=== PATIENT | female | born 1950 | race Caucasian/White ===

== ENCOUNTER 2021-06-19 14:23 | Outpatient (CLI) | payer MEDICARE, OTHER, SELFPAY ==
--- NOTE | ~2021-06-19 | MR_ITS ---
EXAMINATION: MR knee LT wo con DATE: 06/19/2021 15:37 INDICATION: Left knee pain TECHNIQUE: Magnetic resonance imaging (MRI) of the left knee was performed without intravenous contra st. Sequences included coronal PD-weighted FSE, coronal PD-weighted FS FSE, sagittal T2-weighted FSE , sagittal PD-weighted FS FSE and axial PD weighted fat saturated FSE. COMPARISON: None. FINDINGS: Medial compartment: Medial extrusion of the medial meniscal body. Medial meniscal tear with longitudinal horizontal compo nent at the meniscal body and complex tears near the roots of the anterior and posterior horns, the f ormer with amorphous macerated appearance. Extensive full/near full-thickness cartilage loss with sca ttered mild irregularity to the articular cortex and mild subarticular edema along all but the milieu coordinator ior most weightbearing medial femoral condyle. Similar foci seen full-thickness cartilage loss with m ild subarticular edema along the anterior third of the medial tibial plateau. Moderate size marginal osteophytes are present. Lateral compartment: Lateral meniscus is normal. Small amount of deep chondral fissuring at the anterior and central weigh tbearing lateral femoral condyle. Full/near full-thickness chondral ulceration with mild subarticular edema at the anteriormost weightbearing medial femoral condyle at the junction with the inferior asp ect of the lateral trochlea. Cartilage along the lateral tibial plateau is normal. Tiny marginal oste ophytes are present. Patellofemoral compartment: Chondral ulceration and deep fissuring at the patellar apical ridge and medial facet without degenera tive subchondral changes. Shallow chondral fissuring along the inferior aspect of the lateral facet. Deep chondral ulceration with small central subchondral osteophytes along the central aspect of the m edial half of the trochlea and trochlear groove. Deep chondral fissuring with tiny focus of subarticu lar edema at the lateral trochlea. Small marginal osteophytes are present. Ligaments and tendons: Anterior and posterior cruciate ligaments are normal. The medial collateral ligament and fibular luz marina ateral ligament complex are normal. The extensor mechanism is normal. The visualized medial and later al hamstring tendons as well as the iliotibial band are normal. Fluid: Minimal streaky joint effusion at the suprapatellar pouch where there is also a partial suprapatellar plical band. No loose osteochondral bodies identified. Grossman's cyst measuring 5.5 similar craniocaud ally and 1.7 x 1.4 cm in maximal transaxial dimensions. Osseous/other: Bone alignment is normal. No fracture or pathologic marrow replacing process. IMPRESSION: 1. Complex medial meniscal tear. 2. 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 3. Minimal left knee joint effusion and small to moderate-sized Grossman's cyst. Reviewed, dictated and finalized at location A. 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
== END 2021-06-19 14:24 | disposition home or self-care (01) ==
LOC: ANHIMG 14:29
PROVIDERS: PCP Internal Medicine; Visit Provider Nurse Practitioner Family
DX: M17.12 Unilateral primary osteoarthritis, left knee (principal); S83.232A Complex tear of medial meniscus, current injury, left knee, initial encounter; X58.XXXA Exposure to other specified factors, initial encounter
CPT/HCPCS: 73721

== ENCOUNTER 2021-07-30 11:44 | Outpatient (CLI) | payer MEDICARE, OTHER, SELFPAY ==
--- NOTE | ~2021-07-30 | XR_ITS ---
EXAMINATION: XR shoulder LT min 2V INDICATION: Left shoulder pain TECHNIQUE: Four views of the left shoulder are submitted. COMPARISON: None FINDINGS: Normal alignment. No fracture. There is mild osteoarthritis of the glenohumeral and acromio clavicular joints. Soft tissues are unremarkable. IMPRESSION: 1. Mild osteoarthritis without acute osseous abnormality identified. Reviewed, dictated and finalized at location A. 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
[2021-07-30 12:30] LABS: Albumin Level 4.2 g/dL (3.5-5.1)
== END 2021-07-30 11:45 | disposition home or self-care (01) ==
PROVIDERS: PCP Internal Medicine; Referring Provider Orthopaedic Surgery; Visit Provider Internal Medicine
DX: M19.012 Primary osteoarthritis, left shoulder (principal); R77.0 Abnormality of albumin
CPT/HCPCS: 36415; 73030; 82040

== ENCOUNTER 2021-09-01 11:00 | Outpatient (RCR) | payer MEDICARE, OTHER, SELFPAY ==
[2021-08-05 14:02] VITALS: BP_SYST 84
--- NOTE | 2021-08-05 15:20 | PTOPEVAL ---
PHYSICAL THERAPY INITIAL EVALUATION. Thank you for referring Tina Murphy to [facility].? The patient is scheduled to be seen for therapy?2 x/week for 4 weeks. Please review, sign, date and return this plan of care BRAYAN. I agree with and certify that the following plan of care is medically necessary. Referring Physician Date Attending Provider: Jayce Saenz DO *PT Outpatient Evaluation Start: 08/05/21 Evaluation Information Diagnosis L shoulder pain Onset 07/04/2021 Subjective Information Pt states she was getting out Query Text:As Reported By Patient/ of a tall truck when she lost Family her balance and sort of slid out of the truck. To avoid falling on her knees she held on to the door frame and states she jammed her shoulder and it went higher than usual . She thought the pain would have gone away in a few days but it is still lingering. She reports a few weeks ago she rolled over in bed a felt a pop followed by a sharp pain, then a fluttering feeling like a butterfly . Pain Assessment Pain Description Aching,Burning,Shooting, Tightness,With Movement Pain Radiation Left Arm,Left Elbow Pain Frequency Acute Lowest Pain Intensity 7 Greatest Pain Intensity 8 Pain Aggravating Factors Supine Other Pain Aggravating Factors Reaching with her arm Other Alleviating Interventions Pt sleeps in a recliner d/t pain. Ice, heat, and massage do not help Upper Extremity Range of Motion Left Reason Not Measured WNL/Right,Pain Shoulder Flexion - Active 80 Shoulder Flexion - Passive 110 Shoulder Abduction - Active 48 Shoulder Abduction - Passive 84 Shoulder Medial Rotation - Active L5 Shoulder Lateral Rotation - Passive 20 Shoulder Lateral Rotation - Active T1 Scapular/Shoulder Range of Motion Pain Limitations Scapular/Shoulder Range of Motion R shoulder medial rotation T10 Comments , lateral rotation T5 Upper Extremity Muscle Strength Testing Left Shoulder Flexion Strength 3 Fair Shoulder Abduction Strength 3- Fair - Shoulder Medial Rotation Strength 4- Good - Shoulder Lateral Rotation Strength 4- Good - Palpation Assessment Palpation Tenderness at lateral aspect of h
[2021-09-01 10:58] VITALS: BP_SYST 122
--- NOTE | 2021-09-01 11:32 | PTOPEVAL ---
PHYSICAL THERAPY PROGRESS REPORT AND DISCHARGE SUMMARY. Thank you for referring Tina Murphy to [facility].? The patient is to be discharged from skilled physical therapy services at this time. Please review, sign, date and return this plan of care BRAYAN. I agree with and certify that the following plan of care is medically necessary. Referring Physician Date Attending Provider: Jayce Saenz DO Evaluation Information Diagnosis L shoulder pain Onset 07/04/2021 Subjective Information Pt states her shoulder is Query Text:As Reported By Patient/ doing much better. She states Family she no longer has pain and rest, she states when she puts her hair up or reaches overhead she gets an achy pain but this subsided quickly. Pt states she has improved 100% from where she started. Pain Assessment Left Shoulder(s) Reported Pain Level 0 Greatest Pain Intensity 1 Upper Extremity Range of Motion Left Shoulder Flexion - Active 128 Shoulder Flexion - Passive 150 Shoulder Abduction - Active 115 Shoulder Abduction - Passive 122 Shoulder Medial Rotation - Active T12 Shoulder Lateral Rotation - Passive 40 Shoulder Lateral Rotation - Active T4 Scapular/Shoulder Range of Motion R shoulder medial rotation T10 Comments , lateral rotation T5 Upper Extremity Muscle Strength Testing Left Shoulder Flexion Strength 4 Good Shoulder Abduction Strength 4- Good - Shoulder Medial Rotation Strength 4 Good Shoulder Lateral Rotation Strength 4 Good PT Clinical Summary Tina presents to therapy today for her progress report following 8 therapy visits to treat her L shoulder pain. Today she demonstrates decreased pain, increased ROM, increased strength, and increased UE function. Her L UE still has minimal ROM and strength deficits when compared to the uninvolved side but she has progressed to unlimited shoulder function. Pt was educated that her strength and ROM will continue to improve with return to normal functional mobility. She is to be discharged from skilled physical therapy services
== END 2021-09-01 15:43 | disposition home or self-care (01) ==
LOC: ANHPT 11:00
PROVIDERS: PCP Internal Medicine; Referring Provider Internal Medicine; Visit Provider Internal Medicine
DX: M25.512 Pain in left shoulder (principal)
CPT/HCPCS: 97110; 97140; 97161

== ENCOUNTER 2021-09-04 11:37 | Outpatient (CLI) | payer MEDICARE, OTHER, SELFPAY ==
[2021-09-04 13:05] LABS: Basophils Absolute Auto 0.1 K/mm3 (0.0-0.1); Eosinophils Absolute Auto 0.2 K/mm3 (0-0.3); Eosinophils Percent Auto 2.3 % (0-4.4); Hematocrit 42.3 % (37.0-47.0); Hemoglobin 13.6 g/dL (12.0-15.0); Immature Granulocyte Absolute 0.02 K/mm3 (0.00-0.031); Immature Granulocyte Percent A 0.3 % (0-0.5); Lymphocytes Absolute Auto 2.27 K/mm3 (0.9-3.2); Lymphocytes Percent Auto 33.3 % (18.3-44.2); Mean Corpuscular HGB Conc 32.2 g/dl (32-36); Mean Corpuscular Volume 99.5 fl (80-100); Mean Platelet Volume 10.6 fl (7.4-10.4); Monocytes Absolute Auto 0.7 K/mm3 (0.1-0.6); Monocytes Percent Auto 10.4 % (2.6-8.5); Neutrophils Absolute Auto 3.6 K/mm3 (1.3-6.7); Neutrophils Percent Auto 52.7 % (45.5-73.1); Platelet Count Result 290 k/mm3 (150-375); Red Blood Count 4.25 M/mm3 (4.2-5.4); Red Cell Distribution Width 13.1 % (11.5-14.5); White Blood Count 6.8 K/mm3 (4.5-10.0)
[2021-09-04 13:08] LABS: Anion Gap 5 mmol/L (8-16); Blood Urea Nitrogen 19 mg/dL (7-17); Calcium 9.2 mg/dL (8.4-10.2); Carbon Dioxide 32 mmol/L (22-30); Chloride 100 mmol/L (98-107); Estimated Glomerular Filt Rate > 60; Glucose 93 mg/dL (65-110); Potassium 4.1 mmol/L (3.4-5.0); Sodium 137 mmol/L (137-145)
[2021-09-04 13:10] LABS: Appearance Urine Clear (Clear); Bilirubin Urine Negative (Negative); Color Urine Yellow (Yellow); Glucose Urine UA Negative (Negative); Ketones Urine Negative (Negative); Leukocyte Esterase Ur Negative LEU/UL (Negative); Nitrate Urine Negative (Negative); Protein Urine Negative (Negative); Urobilinogen Urine 0.2 mg/dL (<2.0)
[2021-09-04 13:12] LABS: Hemoglobin A1C 5.3 % (<5.7)
[2021-09-04 13:13] LABS: INR 0.9; Prothrombin Time 11.9 Seconds (11.1-14.7)
[2021-09-04 13:15] LABS: Bacteria Urine Trace /hpf; Partial Thromboplastin Time 28.1 SECONDS (22.3-36.8); RBC Urine 0-2 /hpf (0-2); WBC Urine 0-3 /hpf
[2021-09-04 13:19] LABS: Add Urine Microscopic? YES; Blood Urine Trace-Intact (Negative)
[2021-09-04 13:53] LABS: Urine Cotinine NEGATIVE
== END 2021-09-04 11:38 | disposition home or self-care (01) ==
LOC: ANHSURGERY 11:42
PROVIDERS: PCP Internal Medicine; Visit Provider Orthopaedic Surgery
DX: Z01.818 Encounter for other preprocedural examination (principal); M17.12 Unilateral primary osteoarthritis, left knee; Z51.81 Encounter for therapeutic drug level monitoring; Z79.899 Other long term (current) drug therapy
CPT/HCPCS: 80048; 80307; 81001; 83036; 85025; 85610; 85730; 86850; 86900; 86901; 87081

== ENCOUNTER 2021-09-16 09:36 | Outpatient (CLI) | payer MEDICARE, OTHER, SELFPAY ==
--- NOTE | 2021-09-16 10:00 | ECG_ITS ---
Measurements Intervals [place] Rate: 66 P: 39 CT: 170 QRS: -28 QRSD: 98 T: 8 QT: 389 QTc: 409 Interpretive Statements SINUS RHYTHM BORDERLINE LEFT AXIS DEVIATION INCOMPLETE RIGHT BUNDLE BRANCH BLOCK Electronically Signed On 09-16-2021 12:09:26 CDT by Vick Olmstead M.D.
== END 2021-09-16 09:37 | disposition home or self-care (01) ==
LOC: ANHSURGERY 09:41
PROVIDERS: PCP Internal Medicine; Visit Provider Orthopaedic Surgery
DX: M17.12 Unilateral primary osteoarthritis, left knee (principal); Z01.818 Encounter for other preprocedural examination; I45.10 Unspecified right bundle-branch block
CPT/HCPCS: 93005

== ENCOUNTER 2021-09-17 00:08 | Day surgery (SDC) | payer MEDICARE, OTHER, SELFPAY ==
[2021-09-04 11:48] VITALS: BMI 33.6
--- NOTE | 2021-09-04 12:18 | PC.NURSE ---
Report to the Outpatient Waiting Room, entrance under the green pavilion located off [facility], at time _1130 on date __09/17/21 . OR Time: __1:30 PM____. - You and your visitor will be asked a series of questions to screen for COVID 19 for your protection. - A mask is required within the hospital. Preoperative COVID Testing Requirements: No COVID Test needed if: (proof is required; if not received patient will have Rapid Test prior to entry) - Patient has received COVID Vaccine at least 14 days prior to procedure date or - Patient has positive COVID test result within last 90 days of surgery date. COVID Test needed if above criteria is not met If not COVID vaccinated a COVID test must be conducted within 72 hours of surgery and patient is asked to isolate self from time of testing until procedure. You will go to the [facility] for your COVID testing. The [facility] [facility] is located at the corner of [address] [facility]. You will only be called if COVID results are positive and your surgeon may reschedule your elective surgery date. Patients may have clear liquids (water, carbonated beverages, clear teas, apple juice) until 3 hours prior to surgery with a maximum of 20 ounces. - No food from midnight until time of surgery - Infants may have breast milk until 4 hours before surgery, formula 6 hours prior to surgery. - Children will be allowed to drink immediately following surgery. If applicable, please bring a bottle or sippy cup to assist with drinking. Juice, water, soda, and popsicles are readily available. For infants on formula, please bring formula the day of surgery. Pacifiers are allowed. Take the following medications with a SIP of water the morning of surgery: ____NONE Medications to discontinue per physician ALL VITAMINS AND SUPPLEMENTS 3 DAYS PRE OP ,IBUPROFEN PER DR LY Date to take last dose____09/13/21 Please no make-up, nail czech, hairspray, perfume, deodorant, or body powder the day of surgery. No jewelry (including any body piercings) or valuables the day of surgery, leave them at home. Please take a shower or bath the night before, or the morning of, surgery with an antibacterial soap. Wear comfortable, loose fitting clothing. Children are encouraged to wear pajamas. - Jewelry must be removed prior to entering the operating room. Rings and piercings that are not removed may be cut off. - The hospital will not accept responsibility for valuables. - Please leave all valuables, including medications, at home the day of surgery. If you are going home after surgery, a licensed pile driver must drive you home. - NO public transportation without another adult. - We recommend that an adult stay with you for 24 hours following discharge. - We also recommend that you do not drive, make important decision, drink alcoholic beverages, or take any drugs that were not prescribed by your health care provider for at least 24 hours after your discharge time. For Pediatric surgeries, we recommend two adults accompany the child home (only one inside the building at this time). One visitor will be allowed to accompany the patient into the hospital. Patients visitor will be instructed to remain with patient at all times or leave the building. We will allow the visitor to come back to the postoperative area when patient is ready. Follow any additional instructions given to you from your surgeon. VERBAL AND WRITTEN instructions given to __PATIENT and asked if any additional questions and then verbalized understanding. Patient advised to call surgeon office or pre surgery nurse liaison [phone] if any additional questions.
[2021-09-04 12:35] VITALS: BP 135/66; PULSE 69; RESP 18; TEMP 37.1; O2SAT 98
[2021-09-17] VITALS (18 sets, daily range): BP systolic 139–180; BP diastolic 57–96; PULSE 69–97; RESP 10–20; TEMP 36.1–37; O2SAT 88–100
--- NOTE | ~2021-09-17 | XR_ITS ---
EXAMINATION: XR knee LT 2V EXAM DATE: 09/17/2021 15:16 INDICATION: Total left knee arthroplasty. TECHNIQUE: Portable frontal, crosstable lateral projections left knee obtained immediately following arthroplasty performed by orthopedic surgeon Gary Wakefield MD. FINDINGS: Patient is status post total knee arthroplasty. The orthopedic hardware is in expected po sition. There are corinne overlying the anterior aspect of the knee. There is small amount of subcu taneous gas, gas within the knee joint space. Overlying soft tissue swelling. Correlate with proced ure note. IMPRESSION: Status post total left knee arthroplasty. Reviewed, dictated and finalized at location B.
--- NOTE | 2021-09-17 07:07 | WPDHPUPDATE1 ---
History and Physical Update Update Date/Time: 09/17/21 07:07 History and Physical has been reviewed, including an updated exam of the patient. There are NO changes in the patient's condition. Risks, benefits, and alternatives have been discussed and questions answered. Patient agrees to proceed with procedure.
--- NOTE | 2021-09-17 09:13 | WPDANESEPPF ---
Anes - Initial Pre Proc Eval Procedure: Operation Date: 09/17/21 13:30 Proposed Procedures p Left Total Knee Arthroplasty - Gary Wakefield MD Date/Time: 09/17/21 09:13 Surgeon: Gary Wakefield MD Pre Op Diagnosis: left knee DJD Patient Data Age: 71 Gender: F Height: 1.57 m Weight: 83.4 kg Last Vital Signs Temp 37.1 C 09/04/21 12:35 Pulse 69 09/04/21 12:35 Resp 18 09/04/21 12:35 BP 135/66 09/04/21 12:35 Pulse Ox 98 09/04/21 12:35 Allergies Allergy/AdvReac Type Severity Reaction Status Date / Time methylprednisolone Allergy Severe Nausea and Verified 09/17/21 11:24 [From Depo-Medrol] Vomiting,DIZZY Tetanus Vaccines and Toxoid Allergy Severe ARM Verified 09/17/21 11:24 Swelling clindamycin Allergy Intermediate Unknown Verified 09/17/21 11:24 etodolac Allergy Intermediate SOB,SWELLIN Verified 09/17/21 11:24 G gabapentin Allergy Intermediate tongue Verified 09/17/21 11:24 swelling oxaprozin Allergy Intermediate Unknown Verified 09/17/21 11:24 pertussis vaccine,adsorbed Allergy Intermediate tongue Verified 09/17/21 11:24 swelling Sulfa (Sulfonamide Allergy Intermediate Headache,NA Verified 09/17/21 11:24 Antibiotics) USEA cefuroxime AdvReac Dizziness,N Verified 09/17/21 11:24 AUSEA hyaluronic acid AdvReac Nausea,SWELLING Verified 09/17/21 11:24 [From Euflexxa] AND DIZZINESS iohexol AdvReac Vomiting,SO Verified 09/17/21 11:24 [From contrast - CT, X-RAY] B metronidazole [From Flagyl] AdvReac Swelling,DIZZINESS Verified 09/17/21 11:24 AND NAUSEA tramadol AdvReac SOB AND Verified 09/17/21 11:24 SWELLING Home Medications Medication Instructions Recorded Confirmed Type ibuprofen 400 mg PO Q6H PRN 09/04/21 09/17/21 History multivitamin with minerals 1 tablet PO DAILY 09/04/21 09/17/21 History [Hair,Skin and Nails] [id number] carb-vit K 1 tablet PO DAILY 09/04/21 09/17/21 History [Women's Multivitamin] Patient hx anesthesia problems: none Family hx anesthesia problems: none Results Review: All pre-operative results and documents have been reviewed as part of the pre-operative evaluation. [facility] Past Medical History Medical History (Updated 09/11/21 @ 14:57 by Britney Hyatt) Arthritis Hair changes History of colon polyps History of left heart catheterization Left knee DJD Swollen feet Swollen joint Vertigo Wears glasses Surgical History Surgical History History of arthroscopy of left knee History of bariatric surgery History of cholecystectomy History of fusion of cervical spine History of hernia repair History of hysterectomy Hx of reduction mammoplasty Family History Family History Father Cancer Heart problem Mother Cancer Breast cancer Sibling Cancer Other Arthritis Heart disease Social History Social History Additional smoking assessment comments: DENIES ANY FORM OF TOBACCO USE Alcohol intake: never Substance use: never Substance use type: does not use Living arrangements: with family 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 Gender identity (if verbalized by the patient): Female Sexual Orientation (if Verbalized by the Patient): Straight or Heterosexual Spiritual care concerns: No Anes - Eval Final PreProcedure Day of Procedure 09/17/21 09:13 Patient weight: obese Heart: regular rate and rhythm Lungs: clear to auscultation and normal air movement Airway: Mallampati scale class II Neurological: alert and oriented Last oral intake: >/= 8 hours ASA classification: II Emergent: no Anesthetic plan: proceed Anesthesia type and monitoring: general LMA and standard monitoring Results Review: All pre-operative results and documents have been reviewed as part of the pre-operative emma
--- NOTE | 2021-09-17 09:14 | WPDANESPNB ---
Anes - Peripheral Nerve Block Date/Time: 09/17/21 09:14 I have discussed with the patient/family/POA the placement of a peripheral nerve block for post-operative pain management, including associated risks, benefits, complications, and side effects. Alternative methods of post-operative analgesia were detailed. Questions were solicited and answers provided to the satisfaction of the patient/family/POA. Time-Out: A pre-procedural Time-Out was completed immediately before starting the procedure and confirmed: Patient Identification, Site, Procedure, Patient Position and the Availability of Requisite Equipment. Clinical Indications: Acute post-operative pain management requested by the operative surgeon. Nerve Block Insertion Note Anes-nerve block: adductor canal left Patient position: supine Skin prep: chlorhexidine Needle: 22 gauge, stimulating, insulated echogenic needle. Needle length: 80 mm Technique: ultrasound Injectate: bupivacaine 0.5% with epi 5 mcg/ml (30cc - no epi) Observations: tolerated well Complications: none Procedure start time:: 1226 Procedure end time:: 1230
[2021-09-17] MEDS: ACETAMINOPHEN 500 MG TABLET 1000 MG PO ×2 (12:17→19:54)
[2021-09-17] MEDS: LACTATED RINGERS 1,000 ML 30 ML IV CONT ×2 (12:17→15:03)
[2021-09-17] MEDS: TRANEXAMIC ACID 1,000MG/ISO100 1,000 MG/100 ML BAG 200 MG IVPB (12:20)
[2021-09-17] MEDS: ceFAZolin 2 GM/D5W 50 ML 2 GM/50 ML BAG IVPB ×2 (12:45→19:54)
[2021-09-17] MEDS: TRANEXAMIC ACID 1,000 MG/10 ML AMPUL 1000 MG IV PUSH (14:19)
--- NOTE | 2021-09-17 15:17 | W.PM.PROC2 ---
Procedure Note - Detailed Date of Procedure 09/17/21 Pre-op Diagnosis left knee DJD Post-op Diagnosis Same Procedure Performed L TKA Surgeon Gary Wakefield MD Anesthesia General Description of Procedure THE LEFT KNEE WAS PREPPED AND DRAPED IN THE STERILE FASHION. THERE WAS A 5 DEGREE FLEXION CONTRACTURE. A MIDLINE SKIN INCISION WAS MADE. A MEDIAL PARAPATELLAR ARTHROTOMY WAS MADE. THE PATELLA WAS EVERTED. THERE WAS TRICOMPARTMENT DJD. THERE WAS MINIMAL PATELLA DJD. AN INTRAMEDULLARY CHACHA WAS PLACED IN THE FEMUR. A DISTAL FEMORAL CUT WAS MADE IN 5 DEGREES OF VALGUS REMOVING APPROXIMATELY 9 MM OF BONE FROM THE DISTAL FEMUR. THE FEMUR WAS SIZED TO 62.5. A 62.5 FEMORAL CUTTING BLOCK WAS PLACED IN 3 DEGREES OF EXTERNAL ROTATION AND IN ALIGNMENT WITH KELVIN'S LINE AND THE TRANSEPICONDYLAR AXIS. ANTERIOR POSTERIOR AND CHAMFER CUTS WERE MADE. THE CUTS WERE EXCELLENT. NEXT AN INTRAMEDULLARY CUTTING GUIDE WAS PLACED IN THE TIBIA. A TRANS TIBIAL CUT WAS MADE ALONG THE LONG AXIS OF THE TIBIA. APPROXIMATELY 10 MM OF BONE WAS REMOVED FROM THE HIGH SIDE OF THE TIBIA. THE TIBIA WAS THEN PLANED TO A SMOOTH SURFACE. POSTERIOR FEMORAL OSTEOPHYTES WERE REMOVED FROM THE FEMORAL CONDYLES. A 71 TIBIAL TRIAL WAS PLACED IN ALIGNMENT WITH THE 1/3 MEDIAL ASPECT OF THE TIBIAL TUBERCLE. THEN A 62.5 FEMORAL TRIAL COMPONENT WAS PLACED. BOTH HAD EXCELLENT FITS. EVENTUALLY A 14 MM POLYETHYLENE TRIAL COMPONENT WAS PLACED. THE KNEE WAS TAKEN THROUGH A RANGE OF MOTION. THE KNEE CAME OUT TO FULL EXTENSION. THERE WAS NO ABNORMAL TILT TO THE PATELLA. THERE WAS GOOD A/P AND VARUS/VALGUS STABILITY. THERE WAS NO EXCESSIVE ROLL BACK WITH FLEXION. THE TRIAL COMPONENTS WERE REMOVED. THEN A 62.5 FEMORAL COMPONENT AND 71 TIBIAL COMPONENT WITH A 14 POLYETHYLENE COMPONENT WERE CEMENTED INTO PLACE. ONCE THE CEMENT WAS HARD THE KNEE WAS TAKEN THROUGH A ROM AGAIN AND FOUND TO BE STABLE WITH NO PATELLA TILT NO EXCESSIVE ROLL BACK WITH FLEXION AND GOOD STABILITY WITH COMPLETE AND FULL EXTENSION. THE KNEE WAS IRRIGATED WITH STERILE BETADINE AND WATER FOR ABOUT 3 MINUTES. THE BLEEDERS WERE CAUTERIZED. THE ARTHROTOMY WAS REPAIRED WITH NUMBER 1 VICRYL. THE SUB CUTANEOUS LAYER WITH 2-0 VICRYL AND THE SKIN WITH DMITRIY. THE WOUND WAS WASHED AND A STERILE DRESSING WAS APPLIED. PATIENT WAS EXTUBATED. Estimated Blood Loss 100 Pathology None sent Complications No immediate complications Condition Stable Disposition PACU
[2021-09-17] MEDS: fentaNYL CITRATE INJ (*CRX) 100 MCG/2 ML VIAL 25 MCG IV PUSH ×5 (15:21→16:02)
[2021-09-17] MEDS: oxyCODONE/ACETAMINOPHEN (*CRX) 5-325 MG TABLET 2 TABLET PO (16:48)
[2021-09-17] MEDS: SODIUM CHLORIDE 0.9% IV 1,000 ML 125 ML IV CONT (17:11)
[2021-09-17] MEDS: SENNA/DOCUSATE SODIUM TABLET 2 TAB PO (17:11)
--- NOTE | 2021-09-17 17:43 | ADMGEN ---
This patient, Tina Murphy, was admitted to 2 Medical Room 259-01. Patient/family oriented to hospital policies and general routines including ID bracelet, bed and alarms, visiting hours, pain management, procedures, bathroom and other care routines, personal items, smoking policy, room service/diet, and visiting hours. Information on how to activate the Rapid Response Team has been discussed. Patient/Family are encouraged to report perceived risks to care and to ask questions if they do not understand what they are told or what they should do.
[2021-09-17] MEDS: ONDANSETRON INJ 4 MG/2 ML VIAL IV PUSH (20:37)
[2021-09-18 00:18] VITALS: BP 136/56; PULSE 76; RESP 20; TEMP 36.8; O2SAT 95
[2021-09-18] MEDS: ceFAZolin 2 GM/D5W 50 ML 2 GM/50 ML BAG IVPB ×2 (04:55→12:13)
[2021-09-18 05:07] VITALS: BP 123/54; PULSE 72; RESP 20; TEMP 36.6; O2SAT 94
[2021-09-18 05:48] LABS: Anion Gap 3 mmol/L (8-16); Blood Urea Nitrogen 11 mg/dL (7-17); Calcium 8.2 mg/dL (8.4-10.2); Carbon Dioxide 29 mmol/L (22-30); Chloride 103 mmol/L (98-107); Estimated CRCL calculation 87 ml/min; Estimated Glomerular Filt Rate > 60; Glucose 111 mg/dL (65-110); Potassium 3.8 mmol/L (3.4-5.0); Sodium 135 mmol/L (137-145)
[2021-09-18 05:49] LABS: Basophils Percent Auto 0.3 % (0.2-1.2); Hematocrit 33.8 % (37.0-47.0); Hemoglobin 11.4 g/dL (12.0-15.0); Immature Granulocyte Absolute 0.04 K/mm3 (0.00-0.031); Immature Granulocyte Percent A 0.4 % (0-0.5); Lymphocytes Absolute Auto 1.75 K/mm3 (0.9-3.2); Lymphocytes Percent Auto 17.5 % (18.3-44.2); Mean Corpuscular HGB Conc 33.7 g/dl (32-36); Mean Corpuscular Hemoglobin 32.4 pg (26-34); Mean Platelet Volume 10.4 fl (7.4-10.4); Monocytes Absolute Auto 1.4 K/mm3 (0.1-0.6); Monocytes Percent Auto 14.3 % (2.6-8.5); Neutrophils Absolute Auto 6.7 K/mm3 (1.3-6.7); Neutrophils Percent Auto 67.5 % (45.5-73.1); Platelet Count Result 255 k/mm3 (150-375); Red Blood Count 3.52 M/mm3 (4.2-5.4)
[2021-09-18] MEDS: ASPIRIN 325 MG ENTERIC TABLET 650 MG PO (08:08)
[2021-09-18] MEDS: polyethylene glycoL 3350 17 GM POWD.PACK PO (08:08)
[2021-09-18] MEDS: SENNA/DOCUSATE SODIUM TABLET 2 TAB PO (08:08)
[2021-09-18] MEDS: ONDANSETRON INJ 4 MG/2 ML VIAL IV PUSH (08:49)
[2021-09-18 09:59] VITALS: BP 125/56; PULSE 74; RESP 16; TEMP 36.8; O2SAT 98
--- NOTE | 2021-09-18 10:18 | WPDANESPN ---
Anes - Prog Note Post-Op Date/Time: 09/18/21 10:18 Cardiovascular status: normal Respiratory status: normal Airway patency: baseline Mental status: baseline Post-Op hydration status: normal Vital Signs: Last Vital Signs Temp 36.8 C 09/18/21 09:59 Pulse 74 09/18/21 09:59 Resp 16 09/18/21 09:59 BP 125/56 L 09/18/21 09:59 Pulse Ox 98 09/18/21 09:59 Pain Score (VAS): 3 I/O: Intake & Output 09/17/21 09/18/21 09/18/21 23:59 07:59 15:59 Intake Total 50 1540 120 Balance 50 1540 120 Laboratory Tests 09/18/21 05:22 09/18/21 05:22 09/18/21 09/18/21 05:22 05:22 WBC 10.0 RBC 3.52 L Hgb 11.4 L Hct 33.8 L MCV 96.0 MCH 32.4 MCHC 33.7 RDW 13.0 Plt Count 255 MPV 10.4 Immature Gran % (Auto) 0.4 Neut % (Auto) 67.5 Lymph % (Auto) 17.5 L [place] % (Auto) 14.3 H Eos % (Auto) 0.0 Baso % (Auto) 0.3 Lymph # (Auto) 1.75 [place] # (Auto) 1.4 H Eos # (Auto) 0.0 Baso # (Auto) 0.0 Abs Immat Gran (auto) 0.04 H Absolute Neuts (auto) 6.7 Absolute Nucleated RBC 0.0 Nucleated RBC % 0.0 Sodium 135 L Potassium 3.8 Chloride 103 Carbon Dioxide 29 Anion Gap 3 L BUN 11 D Creatinine 0.50 L Estim Creat Clear Calc 87 Estimated GFR > 60 Glucose 111 H Calcium 8.2 L Post-procedural complaints: none Patient Feedback: Patient satisfied with anesthetic care.
--- NOTE | 2021-09-18 10:18 | PM.PNORT ---
Progress Note: A&P Assessment and Plan (1) S/P total knee arthroplasty: Qualifiers: Laterality: left Qualified Code(s): Z96.652 - Presence of left artificial knee joint Code(s): Z96.659 - Presence of unspecified artificial knee joint Status: Acute Assessment and Plan: POD #1: Left TKA Continue PT/OT. WBAT. Walker. FALL RISK. Continue pain control. Ice. Monitor dressing. Change before discharge. DVT prophylaxis. Bowel regimen. Dispo: Home with Home Health today Time Spent With Patient Time with patient: less than 15 minutes Subjective Subjective Date/Time Seen: 09/18/21 10:18 Post Op day: 1 Interval history: POD #1: Left TKA Patient doing well this AM. Pain well controlled. Working well with PT/OT. No new concerns. Hopeful for discharge home. Review of Systems Review of Systems: All systems reviewed & are unremarkable except as noted in HPI and below Constitutional: Constitutional: Denies fever(s) and Denies headache(s) ENT: Denies headache(s) Cardiovascular: Cardiovascular: Denies chest pain, Denies diaphoresis, Denies palpitations and Denies dyspnea Respiratory: Respiratory: Denies dyspnea Gastrointestinal: Gastrointestinal: Denies abdominal pain, Denies constipation, Denies nausea and Denies vomiting Genitourinary: Genitourinary: Reports nocturia and Denies dysuria Musculoskeletal: Musculoskeletal: Reports arthralgias (Left Knee ), Reports joint swelling (Left Knee ) and Reports limited range of motion (ROM limited due to recent surgical intervention LEFT Knee ) Neurologic: Denies headache(s) Endocrine: Endocrine: Denies palpitations Exam Const: General: comfortable and no acute distress Resp: Effort & Inspection: normal respiratory effort Cardio: Rate: bradycardic Rhythm: regular rhythm GI: GI Palp: Yes Soft to palpation, No Tenderness to palpation present (GI) and No Guarding due to palpation present (GI) Skin: Wounds: wounds noted Other: Incision c/d/i. No surrounding redness/warmth. No hematoma. Mild ecchymosis. No wound dehiscence Neuro: Cognition (Neuro): normal cognition Other: NV intact aside from block. Moves toes. Sensation intact to light touch. +ankle dorsiflexion/plantarflexion. Extrem: Left lower extremity: normal to inspection, normal capillary refill and knee Details: tenderness (diffuse ), swelling (moderate consistent to recent surgery ), abnormal ROM (limited due to recent surgery ) and ecchymosis (as expected with recent surgery. NO hematoma. ) Other: Incision left TKA dressing c/d/i. No hematoma. No signs of infection. No wound dehiscence. Psych: Mental Status: mental status grossly normal Objective Data Vital Signs Vital Signs: Vital Signs - 24 hr 09/17/21 12:27 09/17/21 15:03 09/17/21 15:15 Temperature 36.6 C 36.4 C L Pulse Rate 69 93 97 Respiratory Rate 16 10 L 13 Blood Pressure 149/59 H 165/86 H 170/86 H Pulse Oximetry 98 100 100 09/17/21 15:30 09/17/21 15:45 09/17/21 16:00 Temperature 36.4 C L Pulse Rate 95 90 81 Respiratory Rate 15 15 11 L Blood Pressure 170/96 H 180/74 H 164/74 H Pulse Oximetry 99 95 95 09/17/21 16:14 09/17/21 16:20 09/17/21 16:25 Temperature 36.6 C Pulse Rate 82 Respiratory Rate 17 Blood Pressure 153/72 H Pulse Oximetry 89 L 88 L 99 09/17/21 16:29 09/17/21 16:40 09/17/21 16:59 Temperature 36.6 C 37.0 C Pulse Rate 75 78 Respiratory Rate 14 16 Blood Pressure 152/66 H 152/69 H Pulse Oximetry 96 97 90 09/17/21 17:00 09/17/21 17:45 09/17/21 17:59 Temperature 36.9 C Pulse Rate 77 Respiratory Rate 15 Blood Pressure 146/68 H Pulse Oximetry 90 93 95 09/17/21 20:00 09/17/21 20:17 09/17/21 20:40 Temperature 36.1 C L Pulse Rate 79 79 Respiratory Rate 20 20 Blood Pressure 139/57 L Pulse Oximetry 97 97 97 09/18/21 00:18 09/18/21 05:07 09/18/21 09:59 Temperature 36.8 C 36.6 C 36.8 C Pulse Rate 76 72 74 Respiratory Rate 20 20 16 Blood
[2021-09-18] MEDS: oxyCODONE/ACETAMINOPHEN (*CRX) 5-325 MG TABLET 2 TABLET PO (10:27)
[2021-09-18 13:59] VITALS: BP 125/53; PULSE 74; RESP 16; TEMP 37.3; O2SAT 99
--- NOTE | 2021-09-18 14:08 | PM.DS ---
DS: Admitting Diagnosis Discharge Date 09/18/21 Admitting Diagnosis Left knee DJD DS: Discharge Diagnosis Discharge Diagnosis (1) S/P total knee arthroplasty: Qualifiers: Laterality: left Qualified Code(s): Z96.652 - Presence of left artificial knee joint Code(s): Z96.659 - Presence of unspecified artificial knee joint Status: Acute Assessment and Plan: POD #1: Left TKA Continue PT/OT. WBAT. Walker. FALL RISK. Continue pain control. Ice. Monitor dressing. Change before discharge. DVT prophylaxis. Bowel regimen. Dispo: Home with Home Health today DS: Summary Hospital Course Reason for hospitalization: left total knee arthroplasty Hospital Course: 71-year-old female admitted status post left total knee arthroplasty by Dr. Wakefield for postoperative medical management, pain control and mobilization with physical and occupational therapy. Patient progressed very well with PT and OT on postop day 1. Her pain has been well controlled. She has been deemed safe to be discharged home with home health at this time by both physical therapy, occupational therapy and Dr. Wakefield. She will follow up in outpatient orthopedic clinic in approximately 3 weeks as previously scheduled. Discharge instructions and symptoms to report to the office reviewed in depth with the patient today. Patient verbalized understanding. Patient feels safe for the discharge home. Status at Discharge Functional status at discharge: uses cane/walker Overall status at discharge: patient is progressing back to baseline Time Spent with Patient Time attestation: Total time spent providing and/or coordinating discharge services: Exam Const: General: comfortable and no acute distress Resp: Effort & Inspection: normal respiratory effort Cardio: Rate: bradycardic Rhythm: regular rhythm Skin: Wounds: wounds noted Other: Incision c/d/i. No surrounding redness/warmth. No hematoma. Mild ecchymosis. No wound dehiscence Neuro: Cognition (Neuro): normal cognition Other: NV intact aside from block. Moves toes. Sensation intact to light touch. +ankle dorsiflexion/plantarflexion. Extrem: Left lower extremity: normal to inspection, normal capillary refill and knee Details: tenderness (diffuse ), swelling (moderate consistent to recent surgery ), abnormal ROM (limited due to recent surgery ) and ecchymosis (as expected with recent surgery. NO hematoma. ) Other: Incision left TKA dressing c/d/i. No hematoma. No signs of infection. No wound dehiscence. Psych: Mental Status: mental status grossly normal DS: Data Data Completed and Pending Labs on day of discharge: Labs from last 24 hours 09/18/21 09/18/21 05:22 05:22 WBC 10.0 RBC 3.52 L Hgb 11.4 L Hct 33.8 L MCV 96.0 MCH 32.4 MCHC 33.7 RDW 13.0 Plt Count 255 MPV 10.4 Immature Gran % (Auto) 0.4 Neut % (Auto) 67.5 Lymph % (Auto) 17.5 L Stephenson % (Auto) 14.3 H Eos % (Auto) 0.0 Baso % (Auto) 0.3 Lymph # (Auto) 1.75 Stephenson # (Auto) 1.4 H Eos # (Auto) 0.0 Baso # (Auto) 0.0 Abs Immat Gran (auto) 0.04 H Absolute Neuts (auto) 6.7 Absolute Nucleated RBC 0.0 Nucleated RBC % 0.0 Sodium 135 L Potassium 3.8 Chloride 103 Carbon Dioxide 29 Anion Gap 3 L BUN 11 D Creatinine 0.50 L Estim Creat Clear Calc 87 Estimated GFR > 60 Glucose 111 H Calcium 8.2 L Discharge Plan Discharge Patient Disposition: Home Health Service Discharge Instructions: Post Op Total Knee Replacement Instructions Dr. Gary Wakefield [phone] ? Your dressing will be changed prior to your discharge. You will be sent home with one additional dressing to be changed on post op day 7 by the home health RN. Your corinne will be removed on the 14th day after surgery and steri-strips will be placed. Please practice good hand hygiene and do not touch your incision in order to prevent infection. ? You may shower with your dressing b
--- NOTE | 2021-09-18 14:11 | PC.NURSE ---
On 09/18/21, the students, [Yanelis Hidalgo, Jian Grimm], provided care and completed [facility] documentation on this patient. I have reviewed the student's documentation and agree with the findings.
== END 2021-09-18 15:31 | disposition home health service (06) ==
LOC: ANHSURGERY 11:15 → ANH2MED 16:24
PROVIDERS: PCP Internal Medicine; Visit Provider Orthopaedic Surgery
PROC: (CPT 27447; principal; 2021-09-17 13:30)
DX: M17.12 Unilateral primary osteoarthritis, left knee (principal); G89.18 Other acute postprocedural pain; Z98.1 Arthrodesis status; E66.9 Obesity, unspecified; Z68.33 Body mass index [BMI] 33.0-33.9, adult
CPT/HCPCS: 27447; 64447; 36415; 73560; 80048; 85025; 97110; 97116; 97161; 97165; 97535; A9270; C1713; C1776; J0171; J0690; J1100; J1170; J2250; J2405; J2704; J2795; J3010; J7030; J7120

== ENCOUNTER 2021-11-12 12:30 | Outpatient (RCR) | payer MEDICARE, OTHER, SELFPAY ==
--- NOTE | 2021-10-21 09:12 | PTOPEVAL ---
PHYSICAL THERAPY INITIAL EVALUATION. Thank you for referring Tina Murphy to [facility].? The patient is scheduled to be seen for therapy?2x/week for 5 weeks. Please review, sign, date and return this plan of care BRAYAN. I agree with and certify that the following plan of care is medically necessary. Referring Physician Date Attending Provider: Jayce Saenz DO *PT Outpatient Evaluation Start: 10/21/21 Evaluation Information Diagnosis L TKA Onset 09/17/21 Subjective Information Pt is 1 month post op a L TKA. Query Text:As Reported By Patient/ She completed 3 weeks of home Family health PT. She has a month long vacation planned and leaves on December 11. Pt states she has been averaging about 3500 steps a day. Pain Assessment Self Report Pain Assessment Left Knee(s) Reported Pain Level 1 Pain Description Sharp,Tightness Pain Frequency Acute,Intermittent Lowest Pain Intensity 0 Greatest Pain Intensity 2 Lower Extremity Range of Motion Left Knee Flexion Range of Motion - Active 98 Knee Flexion Range of Motion - Passive 110 Knee Extension Range of Motion - Active -4 Knee Range of Motion Comments R knee active ROM 0-128 Lower Extremity Muscle Strength Testing General Lower Extremity Strength WFL/Left,WFL/Right Gross Lower Extremity Strength Catalino hip flexion 4-/5 Catalino knee flexion/extension 4/5 Muscle Length Testing Gastrocnemius Length (L) Mild Tightness Palpation Assessment Palpation medial joint line on the L Balance Assessment Timed Up and Go Test (TUG) (Seconds) 15 Assistive Devices Cane, Straight 5 Time Sit to Stand Time in Seconds 17 5 Time Sit to Stand Comments Without the use of UEs Gait Assessment Ambulation Assistive Devices Cane Other Gait Observations No notable gait deviations with cane, equal weight distribution, equal step length and stride length 2 Minute Walk Total Distance Walked (feet) 386 2 Minute Walk Gait Speed Score (feet/sec 3.21 2 Minute Walk Test Comments With straight cane Manual Therapy Movement Findings Minimal Hypermobility Treatment Comments - gentle patellar glides in Query Text:Include Technique and all direction - hypomobily Result of Technique - passive knee flexion to 110 with hip in 90-90 position - instruction in cross friction massage for scar management PT Clinical Summary
--- NOTE | 2021-11-12 16:28 | PTOPEVAL ---
PHYSICAL THERAPY PROGRESS REPORT AND DISCHARGE SUMMARY. Thank you for referring Tina Murphy to [facility].? The patient is to be d/c'ed from skilled physical therapy services at this time. Please review, sign, date and return this plan of care BRAYAN. I agree with and certify that the following plan of care is medically necessary. Referring Physician Date Attending Provider: Jayce Saenz DO Evaluation Information Diagnosis L TKA Onset 09/17/21 Subjective Information Pt reports no functional Query Text:As Reported By Patient/ limitations at this time. She Family has been able to get in/out of her low Corvette without any issues, she reports no pain, and minimal swelling. She practiced going up/down the steep basement stairs 3x today without any issues, she also vacuumed the house today without issues. She ordered a stationary bike for her home, and has still been walking daily. Pt has been able to get on/off her 4 gann each night. She reports excellent compliance with her HEP. Pt states her knee does get achy at night . Pain Assessment Left Knee(s) Reported Pain Level 0 Greatest Pain Intensity 4 Lower Extremity Range of Motion Knee Range of Motion Left Knee Flexion Range of Motion - Active 120 Knee Flexion Range of Motion - Passive 124 Knee Extension Range of Motion - Active 0 Knee Range of Motion Comments R knee active ROM 0-128 Lower Extremity Muscle Strength Testing General Lower Extremity Strength WFL/Left,WFL/Right Gross Lower Extremity Strength Pedro hip flexion 4+/5 pedro knee flexion/extension 4+/5 Palpation Assessment Palpation medial joint line on the L Balance Assessment Time Up Go (TUG) Comments Initially: 15s with straight cane 11/12/21: 9s without AD 5 Time Sit to Stand Time in Seconds 12 5 Time Sit to Stand Comments Initially: 17s, without the Query Text:Normative Data: If Greater use of UEs Than 15 Seconds, 74% Increase Risk for 11/12/21: 12s, without the use Recurrent Falls of UEs Gait Assessment Ambulation Assistive Devices None Other Gait Observations No notable gait deviations, equal weight distribution, equal step length and stride length 2 Minute Walk 2 Minute Walk T
== END 2021-11-13 11:37 | disposition home or self-care (01) ==
LOC: ANHPT 12:30
PROVIDERS: PCP Internal Medicine; Visit Provider Internal Medicine
DX: Z47.1 Aftercare following joint replacement surgery (principal); M17.12 Unilateral primary osteoarthritis, left knee; Z96.652 Presence of left artificial knee joint
CPT/HCPCS: 97014; 97016; 97110; 97112; 97140; 97161; 97530; G0283

== ENCOUNTER 2022-01-06 08:54 | Outpatient (CLI) | payer MEDICARE, OTHER, SELFPAY ==
--- NOTE | ~2022-01-06 | MM_ITS ---
EXAMINATION: MM screening bob BI w ashlee HISTORY: Screening TECHNIQUE: Craniocaudal and mediolateral oblique 3-D tomosynthesis images were obtained and synthetic 2-D images were generated. CAD analysis was submitted and interpreted. COMPARISON: No prior mammogram is available for comparison at this institution. BREAST PARENCHYMAL COMPOSITION: There are scattered areas of fibroglandular density. FINDINGS: There is no evidence of suspicious mass, calcification, or architectural distortion to sugg est malignancy in either breast. There has been no suspicious interval change. IMPRESSION: 1. No mammographic evidence of malignancy. 2. Recommend routine screening mammography in one year. BI-RADS Category 1: Negative Reviewed, dictated and finalized at location A.
== END 2022-01-06 08:55 | disposition home or self-care (01) ==
PROVIDERS: PCP Internal Medicine; Visit Provider Obstetrics & Gynecology
DX: Z12.31 Encounter for screening mammogram for malignant neoplasm of breast (principal)
CPT/HCPCS: 77063; 77067

== ENCOUNTER 2022-01-14 00:33 | Day surgery (SDC) | payer MEDICARE, OTHER, SELFPAY ==
[2021-12-29 14:21] VITALS: BMI 33.0
--- NOTE | 2022-01-13 14:31 | PM.HPGS ---
History of Present Illness History of Present Illness Consent: Risks, benefits, and alternatives have been discussed and questions answered. Patient agrees to proceed with procedure. Chief complaint: hx of colon polyps Narrative: Tina Murphy is a 71 year old female referred for colon cancer screening. Her last colonoscopy was 5 years ago. She has history of polyps. Review of Systems Review of Systems: All systems reviewed & are unremarkable except as noted in HPI and below PMFSH Past Medical History Medical History Arthritis Hair changes History of colon polyps History of left heart catheterization Left knee DJD Swollen feet Swollen joint Vertigo Wears glasses Surgical History Surgical History History of arthroscopy of left knee History of bariatric surgery History of cholecystectomy History of fusion of cervical spine History of hernia repair History of hysterectomy Hx of reduction mammoplasty S/P total knee arthroplasty Family History Family History Father Cancer Heart problem Mother Cancer Breast cancer Sibling Cancer Other Arthritis Heart disease Social History Social History Smoking status: Never smoker Second hand tobacco smoke exposure: Yes Additional smoking assessment comments: Denies tobacco use. 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 Gender identity (if verbalized by the patient): Female Sexual Orientation (if Verbalized by the Patient): Straight or Heterosexual Spiritual care concerns: No Meds Home Medications and Allergies Home Medications Medication Instructions Recorded Confirmed Type ibuprofen 400 mg tablet 400 mg PO Q6H PRN Pain 09/04/21 12/29/21 History oxbjuakj-glz-vqrh-FA-Ca carb-vit K 1 tablet PO DAILY 09/04/21 12/29/21 History 18 mg iron-400 mcg-500 mg tablet multivitamin with minerals 1 tablet PO DAILY 09/04/21 12/29/21 History (Hair,Skin and Nails tablet) Allergies Allergy/AdvReac Type Severity Reaction Status Date / Time Tetanus Vaccines and Toxoid Allergy Severe ARM Verified 01/14/22 06:45 Swelling clindamycin Allergy Intermediate Unknown Verified 01/14/22 06:45 etodolac Allergy Intermediate SOB,SWELLIN Verified 01/14/22 06:45 G gabapentin Allergy Intermediate tongue Verified 01/14/22 06:45 swelling oxaprozin Allergy Intermediate Unknown Verified 01/14/22 06:45 pertussis vaccine,adsorbed Allergy Intermediate tongue Verified 01/14/22 06:45 swelling Penicillins Allergy Swelling Verified 01/14/22 06:45 methylprednisolone AdvReac Severe Nausea and Verified 01/14/22 06:45 [From Depo-Medrol] Vomiting,DIZZY Sulfa (Sulfonamide AdvReac Intermediate Headache,NA Verified 01/14/22 06:45 Antibiotics) USEA cefuroxime AdvReac Dizziness,N Verified 01/14/22 06:45 AUSEA hyaluronic acid AdvReac Nausea,SWELLING Verified 01/14/22 06:45 [From Euflexxa] AND DIZZINESS iohexol AdvReac Vomiting,SO Verified 01/14/22 06:45 [From contrast - CT, X-RAY] B metronidazole [From Flagyl] AdvReac Swelling,DIZZINESS Verified 01/14/22 06:45 AND NAUSEA tramadol AdvReac SOB AND Verified 01/14/22 06:45 SWELLING Exam Const: General: alert Orientation/consciousness: patient oriented x3 Resp: Auscultation: clear to auscultation bilaterally Cardio: Rhythm: regular rhythm GI: GI Palp: Yes Soft to palpation and No Tenderness to palpation present (GI) Neuro: General: patient oriented x3 Assessment and Plan Assessment and plan (1) Colon cancer screening: Code(s): Z12.11 - Encounter for screening for malignant neoplasm of colon Sta
[2022-01-14 06:46] VITALS: BP 135/65; PULSE 78; RESP 20; TEMP 36.7; O2SAT 98; BMI 34.0
[2022-01-14] MEDS: LACTATED RINGERS 1,000 ML 150 ML IV CONT (06:53)
--- NOTE | 2022-01-14 07:49 | WPDANESEPPF ---
Anes - Initial Pre Proc Eval Procedure: Operation Date: 01/14/22 08:00 Proposed Procedures p Screening Colonoscopy - Sven Landin MD Date/Time: 01/14/22 07:49 Surgeon: Sven Landin MD Pre Op Diagnosis: hx of colon polyps Patient Data Age: 71 Gender: F Height: 1.57 m Weight: 84.4 kg Last Vital Signs Temp 98.1 F 01/14/22 06:46 Pulse 78 01/14/22 06:46 Resp 20 01/14/22 06:46 BP 135/65 01/14/22 06:46 Pulse Ox 98 01/14/22 06:46 O2 Del Method Room Air 01/14/22 06:46 Allergies Allergy/AdvReac Type Severity Reaction Status Date / Time Tetanus Vaccines and Toxoid Allergy Severe ARM Verified 01/14/22 06:45 Swelling clindamycin Allergy Intermediate Unknown Verified 01/14/22 06:45 etodolac Allergy Intermediate SOB,SWELLIN Verified 01/14/22 06:45 G gabapentin Allergy Intermediate tongue Verified 01/14/22 06:45 swelling oxaprozin Allergy Intermediate Unknown Verified 01/14/22 06:45 pertussis vaccine,adsorbed Allergy Intermediate tongue Verified 01/14/22 06:45 swelling Penicillins Allergy Swelling Verified 01/14/22 06:45 methylprednisolone AdvReac Severe Nausea and Verified 01/14/22 06:45 [From Depo-Medrol] Vomiting,DIZZY Sulfa (Sulfonamide AdvReac Intermediate Headache,NA Verified 01/14/22 06:45 Antibiotics) USEA cefuroxime AdvReac Dizziness,N Verified 01/14/22 06:45 AUSEA hyaluronic acid AdvReac Nausea,SWELLING Verified 01/14/22 06:45 [From Euflexxa] AND DIZZINESS iohexol AdvReac Vomiting,SO Verified 01/14/22 06:45 [From contrast - CT, X-RAY] B metronidazole [From Flagyl] AdvReac Swelling,DIZZINESS Verified 01/14/22 06:45 AND NAUSEA tramadol AdvReac SOB AND Verified 01/14/22 06:45 SWELLING Home Medications Medication Instructions Recorded Confirmed Type ibuprofen 400 mg tablet 400 mg PO Q6H PRN Pain 09/04/21 12/29/21 History gkkakezv-suy-chvy-FA-Ca carb-vit K 1 tablet PO DAILY 09/04/21 12/29/21 History 18 mg iron-400 mcg-500 mg tablet multivitamin with minerals 1 tablet PO DAILY 09/04/21 12/29/21 History (Hair,Skin and Nails tablet) Patient hx anesthesia problems: none Family hx anesthesia problems: none Results Review: All pre-operative results and documents have been reviewed as part of the pre-operative evaluation. PMFSH Past Medical History Medical History Arthritis Hair changes History of colon polyps History of left heart catheterization Left knee DJD Swollen feet Swollen joint Vertigo Wears glasses Surgical History Surgical History History of arthroscopy of left knee History of bariatric surgery History of cholecystectomy History of fusion of cervical spine History of hernia repair History of hysterectomy Hx of reduction mammoplasty S/P total knee arthroplasty Family History Family History Father Cancer Heart problem Mother Cancer Breast cancer Sibling Cancer Other Arthritis Heart disease Social History Social History Smoking status: Never smoker Second hand tobacco smoke exposure: Yes Additional smoking assessment comments: Denies tobacco use. 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 Gender identity (if verbalized by the patient): Female Sexual Orientation (if Verbalized by the Patient): Straight or Heterosexual Spiritual care concerns: No Anes - Eval Final PreProcedure Day of Procedure 01/14/22 07:49 Patient weight: obese Heart: regular rate and rhythm Lungs: clear to auscultation Airway: Mallampati scale class II Neurological: alert and oriented Last oral intake: >/= 8 hours ASA classific
[2022-01-14 08:29] VITALS: BP 122/66; PULSE 75; RESP 18; O2SAT 98
[2022-01-14 08:39] VITALS: BP 119/63; PULSE 68; RESP 17; O2SAT 98
[2022-01-14 08:49] VITALS: BP 124/68; PULSE 65; RESP 18; O2SAT 99
== END 2022-01-14 09:05 | disposition home or self-care (01) ==
PROVIDERS: PCP Internal Medicine; Visit Provider Internal Medicine Gastroenterology
PROC: 0DJD8ZZ Inspection of Lower Intestinal Tract, Via Natural or Artificial Opening Endoscopic (ICD-10-PCS; CPT 45378; principal; 2022-01-14 08:00)
DX: Z12.11 Encounter for screening for malignant neoplasm of colon (principal); K57.30 Diverticulosis of large intestine without perforation or abscess without bleeding; D12.8 Benign neoplasm of rectum; Z98.84 Bariatric surgery status; Z98.1 Arthrodesis status; E66.9 Obesity, unspecified; Z68.34 Body mass index [BMI] 34.0-34.9, adult
CPT/HCPCS: 45385; 88305; J2704; J3370; J7120

== ENCOUNTER 2022-01-28 09:27 | Outpatient (CLI) | payer MEDICARE, OTHER, SELFPAY ==
[2022-01-28 09:40] LABS: Hemoglobin 13.4 g/dL (12.0-15.0)
[2022-01-28 09:58] LABS: Anion Gap 8 mmol/L (8-16); Blood Urea Nitrogen 17 mg/dL (7-17); Calcium 8.9 mg/dL (8.4-10.2); Carbon Dioxide 28 mmol/L (22-30); Chloride 101 mmol/L (98-107); Estimated Glomerular Filt Rate > 60; Glucose 90 mg/dL (65-110); Potassium 4.5 mmol/L (3.4-5.0); Sodium 137 mmol/L (137-145)
== END 2022-01-28 09:28 | disposition home or self-care (01) ==
LOC: ANHLAB 09:29
PROVIDERS: PCP Internal Medicine; Visit Provider Internal Medicine
DX: E83.51 Hypocalcemia (principal); D64.9 Anemia, unspecified
CPT/HCPCS: 36415; 80048; 85014; 85018

== ENCOUNTER → 2022-09-14 16:08 | Outpatient (CLI) | payer MEDICARE, OTHER, SELFPAY ==
--- NOTE | ~2022-09-14 | MR_ITS ---
MRI of the right shoulder Technique: Axial proton-density fat-sat images, coronal proton density fat-sat and T2 fat-sat images, and sagittal T1-weighted and T2 fat-sat images were acquired. Clinical History: Pain Findings: There is mild to moderate degenerative change at the AC joint. Small subacromial spur noted . Coracoclavicular, coracoacromial, and coracohumeral ligaments are intact. There is mild to moderate tendinosis of the distal supraspinatus and infraspinatus tendons. No defini te partial or full-thickness tear identified. Subscapularis tendon is intact. Tendon of the long head of the biceps is intact. Probable superior labral tear. There is additional degenerative tearing of the posterior superior and posterior labrum at the equator, likely extending to the posterior inferior portion. Inferior glenohumeral ligament is intact. No degenerative change or effusion of the glenohumeral join t. There is minimal fluid distention of the subacromial/subdeltoid bursa. No muscle atrophy or edema identified. 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 Mild rotator cuff tendinosis without definite tear. Minimal subacromial/subdeltoid bursitis. [id number] AC joint degenerative change. Reviewed, dictated and finalized at [facility]. 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 Mild rotator cuff tendinosis without definite tear. Minimal subacromial/subdeltoid bursitis. [id number] AC joint degenerative change.
== END ==
PROVIDERS: PCP Orthopaedic Surgery; Visit Provider Orthopaedic Surgery
DX: M25.511 Pain in right shoulder (principal); M75.51 Bursitis of right shoulder
CPT/HCPCS: 73221

== ENCOUNTER → 2023-03-09 14:01 | Outpatient (CLI) | payer MEDICARE, OTHER, SELFPAY ==
--- NOTE | ~2023-03-09 | XR_ITS ---
XR chest 2V DATE: 03/09/2023 14:33 INDICATION: Pleural chest pain TECHNIQUE: 2 views COMPARISON: None FINDINGS: Normal heart size. Mild aortic unfolding and calcification. No hilar or mediastinal enlarge ment. No pulmonary infiltrate or consolidation, pleural effusion or pulmonary vascular congestion or pneumo thorax is detected. Degenerative spurring of the thoracic spine. Surgical clips, right upper quadrant, consistent with cholecystectomy. IMPRESSION: No active cardiopulmonary disease Aortic atherosclerosis Reviewed, dictated and finalized at location L.
== END ==
PROVIDERS: PCP Family Medicine; Visit Provider Family Medicine
DX: R07.81 Pleurodynia (principal); I70.0 Atherosclerosis of aorta
CPT/HCPCS: 71046

== ENCOUNTER 2023-03-10 10:16 | Outpatient (CLI) | payer MEDICARE, OTHER, SELFPAY ==
[2023-03-10 11:02] LABS: Hemoglobin 13.2 g/dL (12.0-15.0); Mean Corpuscular Hemoglobin 32.2 pg (26-34); Mean Corpuscular Volume 97.6 fl (80-100); Mean Platelet Volume 10.4 fl (7.4-10.4); Platelet Count Result 272 k/mm3 (150-375); Red Cell Distribution Width 13.7 % (11.5-14.5); White Blood Count 5.4 K/mm3 (4.5-10.0)
[2023-03-10 11:09] LABS: Hemoglobin A1C 5.4 % (<5.7)
[2023-03-10 11:16] LABS: Alanine Aminotransferase 26 U/L (6-35); Alkaline Phosphatase 91 U/L (38-126); Anion Gap 3 mmol/L (8-16); Aspartate Amino Transferase 33 U/L (14-36); Bilirubin,Total 0.8 mg/dL (0.2-1.3); Blood Urea Nitrogen 13 mg/dL (7-17); Calcium 8.7 mg/dL (8.4-10.2); Carbon Dioxide 30 mmol/L (22-30); Chloride 103 mmol/L (98-107); Cholesterol 181 mg/dL (0-200); Estimated Glomerular Filt Rate > 60; Glucose 87 mg/dL (65-110); HDL Direct 71 mg/dL; Magnesium 2.1 mg/dL (1.6-2.3); Potassium 4.1 mmol/L (3.4-5.0); Sodium 136 mmol/L (137-145); Triglycerides 62 mg/dL (<150)
[2023-03-10 11:30] LABS: LDL Cholesterol Direct 94 mg/dL
[2023-03-10 11:37] LABS: Appearance Urine Clear (Clear); Bacteria Urine None Seen /hpf; Bilirubin Urine Negative (Negative); Blood Urine Negative (Negative); Color Urine Yellow (Yellow); Glucose Urine UA Negative (Negative); Ketones Urine Negative (Negative); Leukocyte Esterase Ur 1+ LEU/UL (NEGATIVE); Need Manual Microscopic Reviewed; Nitrate Urine Negative (Negative); Non Pathogenic Casts 0-2; Protein Urine Negative (Negative); RBC Urine 0-2 /hpf (0-2); Specific Grav Ur 1.007 (1.001-1.035); Squamous Epithelial Cell Urine Occasional /hpf (Few); Urobilinogen Urine 0.2 mg/dL (<2.0); WBC Urine 0-5 /hpf (0-3)
[2023-03-10 11:51] LABS: Add Urine Microscopic? YES
[2023-03-10 12:45] LABS: Folic Acid 16.6 ng/mL (2.76->20)
== END 2023-03-10 10:17 | disposition home or self-care (01) ==
PROVIDERS: PCP Family Medicine; Visit Provider Family Medicine
DX: Z00.00 Encounter for general adult medical examination without abnormal findings (principal); E66.9 Obesity, unspecified; E78.5 Hyperlipidemia, unspecified; R53.83 Other fatigue; R73.01 Impaired fasting glucose; Z98.84 Bariatric surgery status; L65.9 Nonscarring hair loss, unspecified
CPT/HCPCS: 36415; 80053; 80061; 81001; 82607; 82746; 83036; 83735; 84443; 85027

== ENCOUNTER 2023-03-30 10:00 | Outpatient (CLI) | payer MEDICARE, OTHER, SELFPAY ==
--- NOTE | ~2023-03-30 | MM_ITS ---
EXAMINATION: MM screening bob BI w ashlee HISTORY: Screening mammogram TECHNIQUE: Craniocaudal and mediolateral oblique 3-D tomosynthesis images were obtained and synthetic 2-D images were generated. CAD analysis was submitted and interpreted. COMPARISON: 01/06/2022 bilateral screening mammogram BREAST PARENCHYMAL COMPOSITION: FINDINGS: There is no evidence of suspicious mass, calcification, or architectural distortion to sugg est malignancy in either breast. There has been no suspicious interval change. IMPRESSION: 1. No mammographic evidence of malignancy. 2. Recommend routine screening mammography in one year. BI-RADS Category 1: Negative Reviewed, dictated and finalized at location A.
== END 2023-03-30 10:01 | disposition home or self-care (01) ==
PROVIDERS: PCP Family Medicine
DX: Z12.31 Encounter for screening mammogram for malignant neoplasm of breast (principal)
CPT/HCPCS: 77063; 77067

== ENCOUNTER 2023-06-25 14:04 | Outpatient (CLI) | payer MEDICARE, OTHER, SELFPAY ==
[2023-06-25 14:57] LABS: Influenza A QL RT-PCR Negative (Negative); Influenza B QL RT-PCR Negative (Negative); RSV RNA, RT-PCR Negative (Negative); SARS-CoV-2 RNA PCR Negative (Negative)
== END 2023-06-25 14:05 | disposition home or self-care (01) ==
LOC: ANHLAB 14:06
PROVIDERS: PCP Family Medicine; Visit Provider Physician Assistant
DX: R05.9 Cough, unspecified (principal); J06.9 Acute upper respiratory infection, unspecified; Z20.822 Contact with and (suspected) exposure to COVID-19
CPT/HCPCS: 87637

== ENCOUNTER 2023-07-27 07:47 | Outpatient (CLI) | payer MEDICARE, OTHER, SELFPAY ==
--- NOTE | 2023-07-27 12:14 | WPDPFTINT ---
PFT Procedure Performed PFT Procedure Performed Spirometry with Pre/Post Bronchodilator Plethysmography (Lung Vol) Diffusing Cap (DLCO) Flow Vol Loop PFT Interpretation Lung volumes were measured with the body plethysmography method. Lung volumes are unremarkable. Spirometry showed normal expiratory flow rates and a normal FEV1 to FVC ratio of 77%. Following administration of a bronchodilator there was no significant increase in the expiratory flow rates. Lung diffusion capacity is within the normal range at 88% predicted. The flow volume loop is unremarkable. Impression: Spirometry, lung volumes, and lung diffusion capacity all within the normal range.
== END 2023-07-27 07:48 | disposition home or self-care (01) ==
LOC: ANHPFT 07:48
PROVIDERS: PCP Family Medicine; Visit Provider Physician Assistant
DX: J06.9 Acute upper respiratory infection, unspecified (principal)
CPT/HCPCS: 94060; 94726; 94729

== ENCOUNTER 2023-07-28 08:07 | Outpatient (CLI) | payer MEDICARE, OTHER, SELFPAY ==
--- NOTE | ~2023-07-28 | XR_ITS ---
EXAMINATION: XR chest 2V 07/28/2023 08:26 INDICATION: Cough. Recent pneumonia. PROCEDURE: 2 view chest COMPARISON: 03/09/2023 FINDINGS: The lungs are clear. The cardiomediastinal silhouette is within normal limits. There are no pleural effusions. There is no pneumothorax suspected. IMPRESSION: 1: NO ACUTE CARDIOPULMONARY DISEASE. Reviewed, dictated and finalized at location A. [employer] PROFESS[employer]
== END 2023-07-28 08:08 | disposition home or self-care (01) ==
LOC: ANHIMG 08:10
PROVIDERS: PCP Family Medicine; Visit Provider Physician Assistant
DX: R05.9 Cough, unspecified (principal)
CPT/HCPCS: 71046

== ENCOUNTER 2023-08-09 08:20 | Outpatient (CLI) | payer MEDICARE, OTHER, SELFPAY ==
--- NOTE | 2023-08-09 08:24 | EST_ITS ---
Patient Info Name: Tina Murphy Age: 73 years : 1950 Gender: Female Ht: 62 in Wt: 187 lbs BSA: 1.96 m2 HR: 74 bpm BP: 136 / 75 mmHg Heart Rhythm: Sinus Rhythm Exam Date: 08/09/2023 8:44 AM Exam Location: Echo Lab Patient Status: Outpatient Admit Date: 08/09/2023 Staff Ordering Physician: Daysi Morel PA-C Attending Provider: Daysi Morel PA-C Exercise Technologist: Telma Chawla CT Exercise Physician: Navarro Pardo DO Exam Type: CA stress test treadmill Study Info Indications R06.09 - Other forms of dyspnea A treadmill exercise stress test was performed. Summary 1. 1. Negative Hu exercise stress test for ischemic ST changes by ECG criteria. 2. 2. Reduced functional capacity, achieving 4.7 METs of workload. 3. 3. Rapid HR response to exercise. 4. 4. Appropriate HR recovery at 1 minute post exercise. 5. 5. No imaging with stress testing. 6. 6. Patient informed of the above results. Protocol: Hu Stress ECG Details Stage: REST Duration (min): 1 min : 27 sec Speed (mph): 0.0 Grade (%): 0 HR (bpm): 74 SBP (mmHg): 136 DBP (mmHg): 75 METS: --- Stage: REST Duration (min): 13 min : 46 sec Speed (mph): 0.0 Grade (%): 0 HR (bpm): 78 SBP (mmHg): 136 DBP (mmHg): 75 METS: --- Stage: STAGE 1 Duration (min): 1 min : 0 sec Speed (mph): 1.7 Grade (%): 10 HR (bpm): 110 SBP (mmHg): 136 DBP (mmHg): 75 METS: --- Stage: STAGE 1 Duration (min): 2 min : 0 sec Speed (mph): 1.7 Grade (%): 10 HR (bpm): 126 SBP (mmHg): 136 DBP (mmHg): 75 METS: --- Stage: STAGE 1 Duration (min): 3 min : 0 sec Speed (mph): 1.7 Grade (%): 10 HR (bpm): 126 SBP (mmHg): 136 DBP (mmHg): 75 METS: --- Stage: RECOVERY Duration (min): 0 min : 59 sec Speed (mph): 0.0 Grade (%): 0 HR (bpm): 96 SBP (mmHg): 196 DBP (mmHg): 105 METS: --- Stage: RECOVERY Duration (min): 1 min : 59 sec Speed (mph): 0.0 Grade (%): 0 HR (bpm): 81 SBP (mmHg): 196 DBP (mmHg): 105 METS: --- Stage: RECOVERY Duration (min): 2 min : 59 sec Speed (mph): 0.0 Grade (%): 0 HR (bpm): 82 SBP (mmHg): 196 DBP (mmHg): 105 METS: --- Stage: RECOVERY Duration (min): 3 min : 19 sec Speed (mph): 0.0 Grade (%): 0 HR (bpm): 79 SBP (mmHg): 130 DBP (mmHg): 87 METS: --- Rest HR: 78 bpm Peak HR: 130 bpm Rest Sys BP: 136 mmHg Peak Sys BP: 196 mmHg Max Pred HR: 148 bpm % Max Pred HR: 88 % Target HR: 126 bpm Max RPP: 25,480 bpm*mmHg Uribe Score: 0 Termination Reason: Reached target heart rate or workload Cardiac Symptoms: Shortness of breath Max ST Seg Deviation: 0.70 mm Total Time: 3 min : 0 sec Rest Chinchilla BP: 75 mmHg Peak Chinchilla BP: 105 mmHg Angina Score: None Total METS: 4.7 Resting ECG Sinus rhythm. Stress ECG No ST changes. Arrhythmias None. Report Signatures
== END 2023-08-09 08:21 | disposition home or self-care (01) ==
LOC: ANHCARD 08:21
PROVIDERS: PCP Family Medicine; Visit Provider Physician Assistant
DX: R06.09 Other forms of dyspnea (principal)
CPT/HCPCS: 93017

== ENCOUNTER 2024-02-10 02:37 | Day surgery (SDC) | payer MEDICARE, OTHER, SELFPAY ==
[2024-02-09 12:40] VITALS: BMI 31.4
--- NOTE | 2024-02-09 12:57 | PC.NURSE ---
Report to the Outpatient Waiting Room, entrance under the green pavilion located off [facility], at time _07:30am___on date _02/10/24 . Planned Procedure Time: _09:30am .? Time changes happen often and if your time is changed the preop area will call you the afternoon before. - You and your visitor will be asked to self-screen and do not enter if you have any COVID symptoms. Please call surgeon if you need to reschedule. - A mask is optional within the hospital at this time. Patients may have clear liquids (water, carbonated beverages, clear teas, apple juice) until 3 hours prior to surgery with a maximum of 20 ounces. - No food from midnight until time of surgery and no smoking Take only the following medications with a SIP of water on the morning of surgery: __None DO NOT STOP ANY OF YOUR OTHER PRESCRIPTION MEDICATIONS PRIOR TO SURGERY EXCEPT THE FOLLOWING Medications to discontinue per physician No NSAIDS for 7 days prior to surgery per Dr Avalos Date to take last dose 02/03/24__ Please no make-up, nail telugu, hairspray, perfume, deodorant, or body powder the day of surgery.? No jewelry (including any body piercings) or valuables the day of surgery, leave them at home.? Please take a shower or bath the night before, or the morning of, surgery with an antibacterial soap.? Wear comfortable, loose fitting clothing.? Children are encouraged to wear pajamas. - Jewelry must be removed prior to entering the operating room.? Rings and piercings that are not removed may be cut off. - The hospital will not accept responsibility for valuables.? - Please leave all valuables, including medications, at home the day of surgery. If you are going home after surgery, a licensed bicycle taxi driver must drive you home.? - NO public transportation without another adult if you receive anesthesia. - We recommend that an adult stay with you for 24 hours following discharge. - We also recommend that you do not drive, make important decision, drink alcoholic beverages, or take any drugs that were not prescribed by your health care provider for at least 24 hours after your discharge time. For Pediatric surgeries, we recommend two adults accompany the child home. Follow any additional instructions given to you from your surgeon. Telephone instructions given to __patient and asked if any additional questions and then verbalized understanding. Patient advised to call surgeon office or pre surgery nurse liaison [phone] if any additional questions.
[2024-02-10] VITALS (9 sets, daily range): BP systolic 120–141; BP diastolic 54–69; PULSE 65–77; RESP 10–17; TEMP 36.2–37.3; O2SAT 96–100
--- NOTE | ~2024-02-10 | XR_ITS ---
XR surgery orthopedic Indication: Right hallux valgus correction first metatarsal TECHNIQUE: Fluoroscopy used during Right hallux valgus correction first metatarsal performed by [Ian Avalos MD] on 02/10/2024. 16 seconds of fluoroscopy with 3 fluoroscopic images captured. FINDINGS: Correlate with procedure note. IMPRESSION: Fluoroscopy used during Right hallux valgus correction first metatarsal. Reviewed, dictated and finalized at location B. IMPRESSION: Fluoroscopy used during Right hallux valgus correction first metata rsal.
--- NOTE | 2024-02-10 07:18 | WPDHPUPDATE1 ---
History and Physical Update Update Date/Time: 02/10/24 07:18 History and Physical has been reviewed, including an updated exam of the patient. There are NO changes in the patient's condition. PLAN: Right hallux valgus correction with 1st metatarsal osteotomy, possible proximal phalangeal osteotomy. Risks, benefits, and alternatives have been discussed and questions answered. Patient agrees to proceed with procedure.
[2024-02-10] MEDS: LACTATED RINGERS 1,000 ML 30 ML IV CONT (08:30)
[2024-02-10] MEDS: ACETAMINOPHEN 500 MG TABLET 1000 MG PO (08:30)
--- NOTE | 2024-02-10 08:47 | WPDANESEPPF ---
Anes - Initial Pre Proc Eval Procedure: Operation Date: 02/10/24 09:30 Proposed Procedures p Right Hallux Valgus Correction with First Metatarsal Osteotomy, Possible Phalangeal Osteotomy - Ian Avalos MD Date/Time: 02/10/24 08:47 Surgeon: Ian Avalos MD Pre Op Diagnosis: Right Hallux Valgus Patient Data Age: 73 Gender: F Height: 1.57 m Weight: 78 kg Allergies Allergy/AdvReac Type Severity Reaction Status Date / Time Tetanus Vaccines and Toxoid Allergy Severe ARM Verified 02/09/24 12:35 Swelling clindamycin Allergy Intermediate Nausea Verified 02/09/24 12:35 etodolac Allergy Intermediate SOB,SWELLIN Verified 02/09/24 12:35 G gabapentin Allergy Intermediate tongue Verified 02/09/24 12:35 swelling oxaprozin Allergy Intermediate Unknown Verified 02/09/24 12:35 Penicillins Allergy Intermediate Swelling Verified 02/09/24 12:36 pertussis vaccine,adsorbed Allergy Intermediate tongue Verified 02/09/24 12:35 swelling methylprednisolone AdvReac Severe Nausea and Verified 02/09/24 12:35 [From Depo-Medrol] Vomiting,DIZZY cefuroxime AdvReac Intermediate Dizziness,N Verified 02/09/24 12:36 AUSEA hyaluronic acid AdvReac Intermediate Nausea,SWELLING Verified 02/09/24 12:37 [From Euflexxa] AND DIZZINESS iohexol AdvReac Intermediate Vomiting,SO Verified 02/09/24 12:37 [From contrast - CT, X-RAY] B metronidazole [From Flagyl] AdvReac Intermediate Swelling,DIZZINESS Verified 02/09/24 12:37 AND NAUSEA Sulfa (Sulfonamide AdvReac Intermediate Headache,NA Verified 02/09/24 12:35 Antibiotics) USEA tramadol AdvReac Intermediate SOB AND Verified 02/09/24 12:37 SWELLING Home Medications Medication Instructions Recorded Confirmed Type ibuprofen 400 mg tablet 400 mg PO Q6H PRN Pain 09/04/21 02/09/24 History multivitamin with minerals 1 tablet PO DAILY 09/04/21 02/09/24 History (Hair,Skin and Nails tablet) multivitamin with minerals 1 tablet PO DAILY 02/09/24 02/09/24 History ondansetron 8 mg disintegrating 8 mg PO Q8H PRN nausea and 02/10/24 Rx tablet vomiting #10 tabs oxycodone-acetaminophen 7.5 mg-325 1 tablet PO Q6H PRN pain #30 tabs 02/10/24 Rx mg tablet (Percocet) polyethylene glycol 3350 17 gram 17 g PO DAILY PRN constipation #14 02/10/24 Rx oral powder packet ea sennosides 8.6 mg-docusate sodium 1 tab-cap PO BID PRN constipation 02/10/24 Rx 50 mg tablet (Senna with Docusate #20 tabs Sodium) Patient hx anesthesia problems: none Family hx anesthesia problems: none Results Review: All pre-operative results and documents have been reviewed as part of the pre-operative evaluation. PMFSH Past Medical History Medical History Arthritis Hair changes Hallux valgus (acquired), right foot History of colon polyps History of left heart catheterization Left knee DJD Swollen feet Swollen joint Vertigo Wears glasses Surgical History Surgical History History of arthroscopy of left knee History of bariatric surgery History of cholecystectomy History of fusion of cervical spine History of hernia repair History of hysterectomy Hx of reduction mammoplasty S/P total knee arthroplasty Family History Family History Father Cancer Heart problem Mother Cancer Breast cancer Sibling Cancer Other Arthritis Heart disease Social History Social History Smoking status: Never smoker Second hand tobacco smoke exposure: Yes Additional smoking assessment comments: Denies tobacco use. Alcohol intake: never Substance use: never Substance use type: does not use Living arrangements: with family Additional living arrangements comments: Occupation/Education: retired Additional occupation/ed
[2024-02-10] MEDS: ceFAZolin 2 GM/D5W 50 ML 2 GM/50 ML BAG IVPB (08:55)
[2024-02-10] MEDS: BUPivacaine HCL 0.5% 10 ML AMP 20 ML INFILTRATE (09:53)
--- NOTE | 2024-02-10 10:26 | W.PM.PROC2 ---
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 Pain with shoe wear, activity and weight-bearing. Pain limits her daily activity. She has failed conservative treatment and presents for operative treatment. Description of Procedure After informed consent was given, the operative extremity was marked in the preoperative holding area. The patient received intravenous antibiotics. The patient was brought to the operating room where they underwent a general anesthetic by the anesthesia team. The patient was positioned supine on the operating room table. A time-out was performed confirming the patient, site of the surgery, and the plan for surgery. The right lower extremity was then prepped and draped in the usual sterile surgical fashion using ChloraPrep skin solution. Foot and ankle were exsanguinated and a calf tourniquet was inflated to 225 mmHg pressure. A longitudinal incision was then made along the medial border of the 1st ray centered over the medial eminence with a #15 blade knife. The previous incision was utilized. Hemostasis was controlled with electric cautery. The dorsal and plantar sensory nerves were identified and retracted bluntly. A medial capsulotomy was then performed. This was reflected off the medial eminence. The joint was inspected for evaluation of degenerative changes. A lateral release was then performed through the joint with a #15 blade knife. The medial eminence was then resected with a sagittal saw in line with the medial border of the foot. Correction of the deformity was performed with a chevron-shaped osteotomy performed with sagittal saw from medial to lateral through the distal portion of the 1st metatarsal. The lateral portion of the bone cut was completed with an osteotome to protect the soft tissue. The capital fragment was then translated laterally and impacted on to the 1st metatarsal shaft. Lateral translation and impaction corrected both hallux valgus deformity and correction of the distal metatarsal articular angle. Temporary fixation was performed and alignment was verified with image intensification. Hallux valgus angle correction, intermetatarsal angle correction and distal metatarsal articular angle were verified. Fixation was achieved with 2.0 millimeter bioabsorbable pins. Two pins were utilized. Image intensification confirmed final alignment. Rotation was verified visually. The wound was then thoroughly irrigated with antibiotic solution. The capsule was repaired through a drill hole in the distal 1st metatarsal with 0 Vicryl interrupted suture. The dorsal limb of the capsule was repaired with 00 Vicryl interrupted suture. Subcutaneous tissue was repaired with 000 Monocryl interrupted suture and the skin approximated with 0000 nylon running suture. Local anesthetic with 0.5% Marcaine plain was injected in the soft tissue. Clinically and fluoroscopically there was still hallux valgus interphalangeus present. Proximal phalanx osteotomy was indicated. Medial incision made along the proximal phalanx with 15 blade knife. Hemostasis controlled electrocautery. Dissection down to the medial aspect of the proximal phalanx. Retractors placed. Sagittal saw used to make a medial closing wedge osteotomy transversely across the proximal phalanx. Image intensification confirmed placement of the osteotomy. Fixation was achieved with the Arthrex 10 millimeter x 9 millimeter staple. Good stability and fixation were noted. Image intensification confirmed final alignment of the osteotomy and placement of the hardware. Overall alignment of the 1st ray was verified. Wound was thoroughly irrigat
--- NOTE | 2024-02-10 10:50 | SUR.PHASEI ---
Simple mask removed at 1045.
[2024-02-10] MEDS: oxyCODONE HCL (*CRX) 5 MG TAB IR PO (11:23)
== END 2024-02-10 12:01 | disposition home or self-care (01) ==
PROVIDERS: PCP Family Medicine; Visit Provider Orthopaedic Surgery
PROC: (CPT 28299; principal; 2024-02-10 09:30)
DX: M20.11 Hallux valgus (acquired), right foot (principal); Z98.1 Arthrodesis status; E66.9 Obesity, unspecified; Z68.32 Body mass index [BMI] 32.0-32.9, adult
CPT/HCPCS: 28299; 99199; A9270; C1713; J0690; J1100; J2250; J2405; J2704; J3010; J7120

== ENCOUNTER 2024-11-10 12:49 | Outpatient (CLI) | payer MEDICARE, OTHER, SELFPAY ==
--- NOTE | ~2024-11-10 | MR_ITS ---
MRI of the cervical spine Clinical History: Radiculopathy Technique: Axial T2-weighted and gradient images, and sagittal T1-weighted, T2-weighted, and STIR max ges were acquired. Findings: There is no acute fracture or subluxation of the cervical spine. There is fusion across the C5 and C6 disc space. No bone marrow signal reality seen. C2-C3, there is no disc bulge or herniation. There is fusion of the left facet joint. No spinal canal stenosis or cord compression. Neural foramina are preserved. At C3-C4, there is moderate degenerative disc narrowing. There is minimal disc osteophyte complex and minimal facet arthropathy. There is left neural foraminal narrowing and possible minimal right neura l foraminal narrowing. No canal stenosis or cord compression. At C4-C5, there is degenerative disc narrowing with mild disc osteophyte complex. There is facet arth ropathy. There is advanced left neural foraminal narrowing and moderate to advanced right neural fora heri narrowing. No canal stenosis or cord compression. At C5-C6, there is no disc bulge or herniation. No spinal canal stenosis, cord compression, or defini te neural foraminal narrowing. At C6-C7, there is advanced degenerative disc narrowing with minimal disc bulge. No spinal canal sten osis or cord compression. Probable minimal left neural foraminal narrowing. Right neural foramen pres erved. No abnormal signal seen in the spinal cord. Paravertebral soft tissues are unremarkable. Impression: Moderate degenerative spondylosis, as detailed above. Reviewed, dictated and finalized at [facility]. Impression: Moderate degenerative spondylosis, as detailed above.
--- NOTE | ~2024-11-10 | MR_ITS ---
MRI of the right shoulder Technique: Axial proton-density fat-sat images, coronal proton density fat-sat and T2 fat-sat images, and sagittal T1-weighted and T2 fat-sat images were acquired. Clinical History: Pain Findings: There is moderate AC joint degenerative change with fluid in the joint space. Coracoclavicu lar, coracoacromial, and coracohumeral ligaments are intact. Supraspinatus and infraspinatus tendons are intact with moderate tendinosis but no partial or full-th ickness tear. Subscapularis tendon intact with mild to moderate tendinosis. Tendon of long head of th e biceps is intact. There is probable superior labral tear extending to the anterosuperior portion. Inferior glenohumeral ligament is intact. Small glenohumeral joint effusion. There is small amount of fluid in the subacromial/subdeltoid bursa. No muscle atrophy or edema. Impression: Probable superior labral tear extending to the anterosuperior portion. Rotator cuff tendinosis without partial or full-thickness tear. Moderate AC joint degenerative change. Reviewed, dictated and finalized at [facility]. Impression: Probable superior labral tear extending to the anterosuperior portion. Rotator cuff tendinosis without partial or full-thickness tear. Moderate AC joint degenerative change.
== END 2024-11-10 12:50 | disposition home or self-care (01) ==
LOC: MICIMG 12:50
PROVIDERS: PCP Family Medicine; Visit Provider Orthopaedic Surgery
DX: M19.011 Primary osteoarthritis, right shoulder (principal); M75.31 Calcific tendinitis of right shoulder; M47.892 Other spondylosis, cervical region
CPT/HCPCS: 72141; 73221

== ENCOUNTER 2025-01-22 09:30 | Outpatient (CLI) | payer MEDICARE, OTHER, SELFPAY ==
--- NOTE | 2025-01-22 09:00 | NEURO_ITS ---
Impression: #Non-diabetic with history of neck surgery in the past complains of decreased hand pastry wrapper. # No Carpal tunnel syndrome. # Mild right Ulnar neuropathy. # Normal Needle/ EMG exam; distally and proximally as well. Nerve Conduction Studies ?Stim Site NR Peak (ms) P-T Amp (?V) Site1 Site2 Delta-P (ms) Dist (cm) Ashkan (m/s) Right Median Anti Sensory (2-3nd Digit) Wrist ? 3.0 18.0 Wrist 2-3nd Digit 3.0 14.0 47 Wrist ? 3.3 4.1 Wrist 2-3nd Digit 3.0 14.0 47 Right Radial Anti Sensory (Base 1st Digit) Wrist ? 2.1 17.3 Wrist Base 1st Digit 2.1 0.0 Right Ulnar Anti Sensory (5th Digit) Wrist ? 2.5 30.3 Wrist 5th Digit 2.5 14.0 56 ?Stim Site NR Onset (ms) O-P Amp (mV) Site1 Site2 Delta-0 (ms) Dist (cm) Ashkan (m/s) Right Median Motor (Abd Poll Brev) Wrist ? 3.1 1.8 Elbow Wrist 4.5 28.0 62 Elbow ? 8.0 3.1 Right Ulnar Motor (Abd Dig Minimi) Wrist ? 2.8 5.2 A Elbow Wrist 4.9 26.0 53 A Elbow ? 7.7 3.2 B Elbow Wrist 3.5 18.0 51 B Elbow ? 6.3 2.9 F Wave Studies ?NR F-Lat (ms) L-R F-Lat (ms) Right Median (Mrkrs) (Abd Poll Brev) ? 27.29 Right Ulnar (Mrkrs) (Abd Dig Min) ? 26.68 Electromyography ?Side Muscle Nerve Root Ins Act Fibs Amp Dur Recrt Comment Right 1stDorInt Ulnar C8-T1 Nml Nml Nml Nml Nml Right Ext Indicis Radial (Post Int) C7-8 Nml Nml Nml Nml Nml Right Ext Digitorum Radial (Post Int) C7-8 Nml Nml Nml Nml Nml Right BrachioRad Radial C5-6 Nml Nml Nml Nml Nml Right PronatorTeres Median C6-7 Nml Nml Nml Nml Nml Right Abd Poll Brev Median C8-T1 Nml Nml Nml Nml Nml Right ABD Dig Min Ulnar C8-T1 Nml Nml Nml Nml Nml Right FlexPolLong Median (Ant Int) C7-8 Nml Nml Nml Nml Nml Right Abd Poll Long Radial (Post Int) C7-8 Nml Nml Nml Nml Nml
== END 2025-01-22 09:31 | disposition home or self-care (01) ==
PROVIDERS: PCP Family Medicine; Visit Provider Orthopaedic Surgery
DX: R20.0 Anesthesia of skin (principal); R20.2 Paresthesia of skin; R29.898 Other symptoms and signs involving the musculoskeletal system; G56.01 Carpal tunnel syndrome, right upper limb
CPT/HCPCS: 95886; 95909

== ENCOUNTER 2025-03-26 08:06 | Emergency (ER) | payer MEDICARE, OTHER, SELFPAY ==
--- NOTE | 2025-03-26 08:08 | ED.URI ---
HPI - URI/Sore Throat General Chief Complaint: Upper Respiratory Infection Stated Complaint: ear/sore throat Time Seen by Provider: 03/26/25 08:08 Source: patient Mode of arrival: ambulatory Limitations: no limitations History of Present Illness HPI Narrative: Tina is a 74 year old female patient presenting to the clinic today with c/o bilateral ear, runny nose, and sore throat that just started last night. She reports she had taken Benadryl for her symptoms without relief. Rates her ear pain and 8/10-piercing/stabbing and sore throat a 5/10 currently. Does feel as though there is drainage going in the back of her throat. Denies cough, fevers, chills, body aches. Related Data Home Medications ?Medication ?Instructions ?Recorded ?Confirmed ?Last Taken ?Type multivitamin (Daily Value tablet) 1 tablet PO DAILY 03/26/25 03/26/25 Unknown History Allergies Allergy/AdvReac Type Severity Reaction Status Date / Time methylprednisolone (From AdvReac Mild Nausea and Verified 03/26/25 08:33 Depo-Medrol) Vomiting Review of Systems Review of Systems: Pertinent positives per HPI. Patient denies any fever, chills, rash, headache, visual changes, dizziness, cough, shortness of breath, chest pain, palpitations, nausea, vomiting, diarrhea, constipation, abdominal pain, or any urinary issues. PMFSH Comments At the time of my signature, I reviewed and agree with the nursing past medical, surgical, social, and family history. There is no relevant family history pertinent to the patient complaint. Exam Narrative: General: Well-developed, well nourished, in no apparent distress Head: Normocephalic, atraumatic Eyes: Pupils equally round and reactive to light bilaterally, EOM intact, sclera and conjunctive clear, no discharge, lids normal Ears: TMs intact, congested, mild bulging, tenderness to palpation over bilateral eustachian tubes, ear canals clear, no drainage, grossly hearing normal. Nose: Nares patent, clear discharge, mild inflammation, no sinus tenderness. Mouth: Oral pharynx without lesions or masses, good dentition, MMM. Neck: Supple, trachea midline, no enlargement of anterior or posterior cervical nodes, no thyroid masses or goiter palpable. Cardio: Regular rate and rhythm, s1 and s2 normal, no murmur appreciated. Resp: Clear to auscultation bilaterally, no rhonchi, rales, wheezing or rubs Course Course Emergency Course: Portions of this record may have been created with voice recognition software. Level of Care: Express Care Visit Vital Signs Vital signs: Vital Signs Temperature 36.9 C 03/26/25 08:23 Pulse Rate 60 03/26/25 08:23 Respiratory Rate 16 03/26/25 08:23 Blood Pressure 137/60 03/26/25 08:23 Pulse Oximetry 100 03/26/25 08:23 Temperature 36.9 C 03/26/25 08:23 Pulse Rate 60 03/26/25 08:23 Respiratory Rate 16 03/26/25 08:23 Blood Pressure 137/60 03/26/25 08:23 Pulse Oximetry 100 03/26/25 08:23 Vital signs reviewed MDM - URI/Sore Throat MDM Narrative Medical decision making narrative: At the time of visit patient is resting comfortably on the exam table. Patient appears to be nontoxic. C/o bilateral ear, runny nose, and sore throat that just started last night. She reports she had taken Benadryl for her symptoms without relief. Rates her ear pain and 8/10-piercing/stabbing and sore throat a 5/10 currently. Does feel as though there is drainage going in the back of her throat. Denies cough, fevers, chills, body aches. No shortness of breath or chest pain. On exam patient has TMs intact, mild bulging, no redness, tenderness to palpation was eustachian tube, postnasal drip, lung sounds are clear, heart rates regular rate and rhythm. Vital signs are stable. Strep test was ordered. Labs: Strep test was negative in the clinic today. We will send strep culture Plan: I suspect patient has URI/postnasal drip/eustachian tube dysfunction. Recommend using Flonase and [id number] antihistamine such as Zyrtec or Claritin. Supportive measures were discussed with the patient and they voiced understanding discharge instructions and agrees to treatment plan. Return precautions reviewed Differential Diagnosis Differential diagnosis: Likely upper respiratory infection, otitis media, sinusitis, viral infection, bronchitis, influenza, pharyngitis and other (COVID) Discharge Plan Discharge Clinical Impression: PND (post-nasal drip), Acute dysfunction of both eustachian tubes Upper respiratory infection Qualifiers: URI type: unspecified URI Qualified Code(s): J06.9 - Acute upper respiratory infection, unspecified Patient Disposition: Home Condition: Stable Instructions: Antibiotic Form, Earache (ED), Cold Symptoms (ED), Postnasal Drip (DC) Additional Instructions: Strep test was negative in the clinic today. We will send strep for culture if this comes back positive we will contact him place you on antibiotics at that time. Increase fluids and stay well hydrated May take Tylenol or motrin as directed on bottle for pain/fever May use Flonase 1 spray in each nare daily May take OTC antihistamines such as Zyrtec or Claritin daily as directed on bottle May apply Vicks vapor rub to chest to open sinuses Sinus rinses for congestion Cepacol spray, cough drops, throat lozenges, warm tea with honey/lemon, gargle salt water to soothe throat BRAT diet for diarrhea Clear liquids x 24 hours then advance as tolerated for nausea/vomiting Go to the ED if you develop a worsening in your condition- high fever not controlled by Tylenol or Motrin, dehydration, weakness, lethargy, shortness of breath, or chest pain. Follow up with your PCP in 3-5 days if symptoms persist. Patient Language: Romansh Prescriptions: No Action multivitamin [Daily Value] Tablet 1 tablet PO DAILY Follow-up/Referrals: Jose,Nata Payne MD [Primary Care Provider, Unknown] Time of Disposition: 08:31 Quality NIHSS Nursing Documentation ED NIHSS nursing documentation: reviewed/agree
[2025-03-26 08:23] VITALS: BP 137/60; PULSE 60; RESP 16; TEMP 36.9; O2SAT 100
[2025-03-26 08:33] LABS: EDSTREPNEGPOS1 Negative (Negative)
== END 2025-03-26 08:34 | disposition home or self-care (01) ==
PROVIDERS: Emergency Provider Nurse Practitioner Family; PCP Family Medicine
DX: R09.82 Postnasal drip (principal); H69.93 Unspecified Eustachian tube disorder, bilateral; J06.9 Acute upper respiratory infection, unspecified
CPT/HCPCS: 87081; 87880; 99203; G0463